=== PATIENT | male | born 1995 | race Caucasian/White ===

== ENCOUNTER 2017-01-09 11:14 | Emergency (ER) | payer OTHER ==
[~2017-01-09 11:14] MED LIST: DOXYCYCLINE150 MG PO; KEFLEX PO; NAPROSYN250 M1 PO; NAPROXEN PO
== END 2017-01-09 11:40 | disposition home or self-care (01) ==
LOC: CFTX 11:14 → CED 11:14 → CFTX 11:37
DX: R05 Cough (principal); F17.210 Nicotine dependence, cigarettes, uncomplicated
CPT/HCPCS: 99282